=== PATIENT | female | born 1995 | race Two or more races ===

== ENCOUNTER 2021-10-03 22:23 | Emergency (ER) | payer OTHER ==
[~2021-10-03] VITALS: Ht 142.2 cm; Wt 68.0 kg
[2021-10-03] MEDS ORDERED: SYMBICORT 16010.2 GM (22:32)
[2021-10-04] MEDS ORDERED: MEDROL4 MG PO (01:00)
[2021-10-04] MEDS ORDERED: AZITHROMYCIN500 MG PO (01:00)
[2021-10-04] MEDS ORDERED: MUCINEX DM ER1 EAC1 PO (01:00)
[2021-10-04] MEDS ORDERED: LEVALBUTER1.25 MG/3 IH (01:00)
== END 2021-10-04 02:22 | disposition home or self-care (01) ==
LOC: ER 22:23
DX: J45.909 Unspecified asthma, uncomplicated (principal); J06.9 Acute upper respiratory infection, unspecified; Z20.822 Contact with and (suspected) exposure to COVID-19